=== PATIENT | female | born 2000 | race American Indian/Alaskan Native ===

== ENCOUNTER 2018-07-08 13:42 | Emergency (ER) | payer MEDICAID ==
[2018-07-08 15:07] LABS: BASO % 0.6 % (0.0-2.0); EOS # 0.3 K/uL (0.0-0.7); EOS % 3.9 % (0.0-4.0); HEMOGLOBIN 12.2 g/dL (12.0-16.0); LYMPH # 1.4 K/uL (1.0-4.3); LYMPH % 22.1 % (20.0-40.0); MEAN CELL VOLUME 88.8 fl (81.0-99.0); MEAN CORPUSCULAR HEMOGLOBIN 29.5 pg (27.0-31.0); MEAN CORPUSCULAR HGB CONC 33.2 g/dL (33.0-37.0); MEAN PLATELET VOLUME 8.7 fl (7.2-11.7); MONO # 0.4 K/uL (0.0-0.8); MONO % 6.9 % (0.0-10.0); NEUT # 4.3 K/uL (1.8-7.0); NEUT % 66.5 % (50.0-75.0); RBC 4.13 Mil/uL (3.80-5.20); RED CELL DISTRIBUTION WIDTH 18.7 % (11.5-14.5); WHITE BLOOD COUNT 6.4 K/uL (4.8-10.8)
[2018-07-08 15:19] LABS: SQUAMOUS EPITHIAL 12 /hpf (0-5); URINE BACTERIA OCC (<OCC); URINE BILIRUBIN NEGATIVE (NEGATIVE); URINE BLOOD NEGATIVE (NEGATIVE); URINE CLARITY CLOUDY (Clear); URINE COLOR YELLOW (YELLOW); URINE GLUCOSE (UA) NEG (Normal); URINE LEUKOCYTE ESTERASE NEG Leu/uL (Negative); URINE PROTEIN 30 mg/dL (NEGATIVE); URINE UROBILINOGEN 0.2-1.0 mg/dL (0.2-1.0)
[2018-07-08 15:23] LABS: ALB/GLOB RATIO 1.3 (1.0-2.1); ALBUMIN 4.3 g/dL (3.5-5.0); ALT/SGPT 18 U/L (9-52); AST/SGOT 28 U/L (14-36); BLOOD UREA NITROGEN 12 mg/dl (7-17); CALCIUM 9.2 mg/dL (8.4-10.2); GFR AFRICAN-AMERICAN > 60; GFR NON-AFRICAN AMERICAN > 60
--- NOTE | 2018-07-08 15:27 | ED PDOC ---
HPI: Abdomen Time Seen by Provider: 07/08/18 14:01 Chief Complaint (Nursing): Abdominal Pain Chief Complaint (Provider): Abdominal Pain History Per: Patient History/Exam Limitations: no limitations Onset/Duration Of Symptoms: Other (2 weeks) Quality Of Discomfort: "Pain" Associated Symptoms: denies: Fever, Vomiting, Diarrhea, Loss Of Appetite, Chest Pain, Constipation, Urinary Symptoms Exacerbating Factors: denies: None Alleviating Factors: denies: None Last Bowel Movement: Today Additional History Per: Patient Additional Complaint(s): 18 year old female with a past medical history of asthma presents to the ED for an evaluation of lower abdominal pain with associated symptom of mild nausea onset for 2 weeks. Patient states she is 2 weeks late for her period and her last normal menstrual cycle was in early May. Currently, she has lower abdominal pain that is not associated with her period. Also reports of wheezing this morning for which she took Albuterol for relief (pt states she does not need refill for albuterol). On Saturday, patient took a test that was negative and on Saturday she took 2 tests that showed positive results. Patient has vaginal spotting but denies STD, previous , mischarge, vaginal discharge or bleeding. She has not visited a imcu specialist. PMD: [place] Past Medical History Reviewed: Historical Data, Nursing Documentation, Vital Signs Vital Signs: Last Vital Signs Temp 97.6 F 07/08/18 17:05 Pulse 76 07/08/18 17:05 Resp 19 07/08/18 17:05 BP 124/78 07/08/18 17:05 Pulse Ox 99 07/08/18 18:35 - Medical History PMH: Asthma Denies: Chronic Kidney Disease - Family History Family History: States: Unknown Family Hx - Social History Current smoker - smoking cessation education provided: No Alcohol: None Drugs: Denies - Immunization History Hx Tetanus Toxoid Vaccination: Yes Hx Influenza Vaccination: No - Home Medications Home Medications: Ambulatory Orders Medication Instructions Recorded Amoxicillin/Clavulanate [Augmentin 1 tab PO BID #14 tab 06/13/16 875 MG-125 MG] Vit No.129/Iron/Folic 1 each PO DAILY #30 tablet 07/08/18 [ One Daily Tablet] - Allergies Allergies/Adverse Reactions: Allergies Allergy/AdvReac Type Severity Reaction Status Date / Time No Known Allergies Allergy Verified 07/08/18 13:45 Review of Systems ROS Statement: Except As Marked, All Systems Reviewed And Found Negative Gastrointestinal: Positive for: Nausea (mild), Abdominal Pain. Negative for: Vomiting Genitourinary Female: Positive for: Other (vaginal spotting). Negative for: Dysuria, Frequency, Incontinence, Vaginal Discharge, Vaginal Bleeding Physical Exam - Reviewed Nursing Documentation Reviewed: Yes Vital Signs Reviewed: Yes - Physical Exam Appears: Positive for: Well, Non-toxic, No Acute Distress Head Exam: Positive for: ATRAUMATIC, NORMAL INSPECTION, NORMOCEPHALIC Skin: Positive for: Normal Color, Warm, Dry Eye Exam: Positive for: EOMI, Normal appearance, PERRL ENT: Positive for: Normal ENT Inspection Neck: Positive for: Normal, Painless ROM, Supple. Negative for: Decreased ROM Cardiovascular/Chest: Positive for: Regular Rate, Rhythm. Negative for: Murmur Respiratory: Positive for: Normal Breath Sounds. Negative for: Decreased Breath Sounds, Wheezing, Respiratory Distress Gastrointestinal/Abdominal: Positive for: Normal Exam, Bowel Sounds, Soft. Negative for: Tenderness, Guarding, Rebound Back: Positive for: Normal Inspection. Negative for: L CVA Tenderness, R CVA Tenderness Extremity: Positive for: Normal ROM. Negative for: Tenderness, Pedal Edema, Deformity Neurologic/Psych: Positive for: Alert, Oriented (x3). Negative for: Motor/ Sensory Deficits - Laboratory Results Result Diagrams: 07/08/18 14:40 07/08/18 14:40 - ECG O2 Sat by Pulse Oximetry: 99 (RA) Pulse Ox Interpretation: Normal Medical Decision Making Medical Decision Making: Time: 1413 Initial Impression: Pt with lower abdominal pain and 2 weeks late on menstrual period. 2 positive home tests. Ultrasound to confirm IUP. Pt hemodynamically stable and low suspicion for ectopic . Initial Plan: --Type and Screen --Beta-HCG, Quantitative --CMP --Magnesium --Phosphorous --CBC w/ Differential --Urinalysis -- Age [US] --Reevaluation Time: 1610 PROCEDURE: OB Pelvic Ultrasound HISTORY: confirm IUP COMPARISON: None available. FINDINGS: UTERUS: Single Live intrauterine gestation. CRL measures 1.7 cm equivalent to 6 weeks and 0 day of gestational age. Gestational sac diameter measures 1.7 cm equivalent to 6 weeks and 0 day of gestational age with age (Ultrasound estimated): 6 weeks and 1 day Date of delivery (Ultrasound estimated) : 03/02/2019 Heart rate: 79 bpm. Eden-gestational hemorrhage: None. Uterus measures cm. No mass CERVIX: Long and closed. No cervical abnormality seen. RIGHT OVARY: Measures 2.8 x 1.7 x 2.6 cm. No mass. Normal flow. LEFT OVARY: Measures 1.8 x 1.3 x 1.2 cm. No mass. Normal flow. FREE FLUID: None. OTHER FINDINGS: None. IMPRESSION: Single live intrauterine gestation with mean gestational age of 6 weeks and 1 day. The estimated date of delivery by ultrasound is 03/02/2019. The ultrasound dates correspond with the clinical dates. The heart rate is 79, concerning for bradycardia. Clinical follow- up is advised. Patient advised to follow-up with imcu specialist. Clinical Impression: abdominal pain during Upon provider evaluation patient is medically stable, and requires no further treatment in the ED at this time. Patient will be discharged with One Daily. Counseling was provided and all questions were answered regarding diagnosis and need for follow up with women health clinic. There is agreement to discharge plan. Return if symptoms persist or worsen. Scribe Attestation: Documented by Tracie Haque, acting as a scribe for Fiona Lee MD Provider Scribe Attestation: All medical record entries made by the Scribe were at my direction and personally dictated by me. I have reviewed the chart and agree that the record accurately reflects my personal performance of the history, physical exam, medical decision making, and the department course for this patient. I have also personally directed, reviewed, and agree with the discharge instructions and disposition. Pt with normal labs, O+ blood, and confirmed IUP. Prenantal care (no smoking, drugs, appropriate diet etc) discussed with the patient. Pt given referral to [facility] and Rx for vitamins. Return parameters discussed with the patient. Disposition - Clinical Impression Clinical Impression: Abdominal pain during - Patient ED Disposition Is Patient to be Admitted: No - Disposition Referrals: [facility] [Outside] Disposition: Routine/Home Disposition Time: 17:00 Condition: GOOD Additional Instructions: Follow up with nurse staff community health for routine care. Prescriptions: Vit No.129/Iron/Folic [ One Daily Tablet] 1 each PO DAILY #30 tablet Instructions: Medications and , Alcohol and , Screenings, Nutrition Before and During , Morning Sickness (DC) Forms: [employer] (Sudanese)
--- NOTE | 2018-07-08 16:12 | US ---
Date of service: 07/08/2018 PROCEDURE: OB Pelvic Ultrasound HISTORY: confirm IUP COMPARISON: None available. FINDINGS: UTERUS: Single Live intrauterine gestation. CRL measures 1.7 cm equivalent to 6 weeks and 0 day of gestational age. Gestational sac diameter measures 1.7 cm equivalent to 6 weeks and 0 day of gestational age with age (Ultrasound estimated): 6 weeks and 1 day Date of delivery (Ultrasound estimated) : 03/02/2019 Heart rate: 79 bpm. [place]-gestational hemorrhage: None. Uterus measures cm. No mass CERVIX: Long and closed. No cervical abnormality seen. RIGHT OVARY: Measures 2.8 x 1.7 x 2.6 cm. No mass. Normal flow. LEFT OVARY: Measures 1.8 x 1.3 x 1.2 cm. No mass. Normal flow. FREE FLUID: None. OTHER FINDINGS: None. IMPRESSION: Single live intrauterine gestation with mean gestational age of 6 weeks and 1 day. The estimated date of delivery by ultrasound is 03/02/2019. The ultrasound dates correspond with the clinical dates. The heart rate is 79, concerning for bradycardia. Clinical follow-up is advised.
[2018-07-08 17:05] VITALS: BP 124/78; PULSE 76; RESP 19; TEMP 97.6
[2018-07-08 18:20] VITALS: O2SAT 99
== END 2018-07-08 17:06 | disposition home or self-care (01) ==
LOC: H.ER 13:42
DX: O26.91 Pregnancy related conditions, unspecified, first trimester (principal); R10.2 Pelvic and perineal pain; O99.511 Diseases of the respiratory system complicating pregnancy, first trimester; J45.909 Unspecified asthma, uncomplicated; Z3A.01 Less than 8 weeks gestation of pregnancy

== ENCOUNTER 2018-07-31 12:13 | Emergency (ER) | payer MEDICAID ==
[2018-07-31 12:51] VITALS: O2SAT 100
[2018-07-31 13:37] LABS: INR 1.1; PROTHROMBIN TIME 12.3 Seconds (9.8-13.1)
[2018-07-31 13:43] LABS: BASO % 0.9 % (0.0-2.0); EOS # 0.2 K/uL (0.0-0.7); EOS % 6.9 % (0.0-4.0); HEMOGLOBIN 11.8 g/dL (12.0-16.0); LYMPH # 1.4 K/uL (1.0-4.3); LYMPH % 38.9 % (20.0-40.0); MEAN CELL VOLUME 88.2 fl (81.0-99.0); MEAN CORPUSCULAR HEMOGLOBIN 29.6 pg (27.0-31.0); MEAN CORPUSCULAR HGB CONC 33.6 g/dL (33.0-37.0); MEAN PLATELET VOLUME 8.3 fl (7.2-11.7); MONO # 0.3 K/uL (0.0-0.8); MONO % 8.9 % (0.0-10.0); NEUT # 1.6 K/uL (1.8-7.0); NEUT % 44.4 % (50.0-75.0); NRBC % 0.1 % (0.0-0.0); RBC 3.97 Mil/uL (3.80-5.20); RED CELL DISTRIBUTION WIDTH 17.7 % (11.5-14.5); WHITE BLOOD COUNT 3.5 K/uL (4.8-10.8)
[2018-07-31 13:45] LABS: ALB/GLOB RATIO 1.3 (1.0-2.1); ALT/SGPT 21 U/L (9-52); AST/SGOT 23 U/L (14-36); BLOOD UREA NITROGEN 13 mg/dl (7-17); CALCIUM 9.1 mg/dL (8.4-10.2); GFR NON-AFRICAN AMERICAN > 60
--- NOTE | 2018-07-31 14:18 | ED PDOC ---
HPI: Female Pain Time Seen by Provider: 07/31/18 13:03 Chief Complaint (Nursing): Female Genitourinary Chief Complaint (Provider): Vaginal bleeding History Per: Patient History/Exam Limitations: no limitations Onset/Duration Of Symptoms: Persistent Current Symptoms Are (Timing): Still Present Associated Symptoms: denies: Fever, Chills, Nausea, Vomiting, Diarrhea, Back Pain, Chest Pain Additional History Per: Patient Additional Complaint(s): 18yo female, comes to ER with complaints of persistent vaginal bleeding. Patient states mid-june she found out that she was and on 07/10 she took Cytotec 800mg for an elective ; patient states she took a 600mg pill 3 hours later and then took 200mg of cytotec 1x per day for 1 week. Patient reports she is concerned due to the persistent bleeding and reports she has been using several pads per day. Otherwise, denies any cramping, dizziness, weakness. No other complaints. Abnormal Vaginal Bleeding: Yes Past Medical History Reviewed: Historical Data, Nursing Documentation, Vital Signs Vital Signs: Last Vital Signs Temp 98.2 F 07/31/18 12:49 Pulse 80 07/31/18 12:49 Resp 18 07/31/18 12:49 BP 116/71 07/31/18 12:49 Pulse Ox 100 07/31/18 12:49 - Medical History PMH: Asthma Denies: Chronic Kidney Disease - Surgical History Surgical History: No Surg Hx - Family History Family History: States: No Known Family Hx - Social History Current smoker - smoking cessation education provided: No Alcohol: None Drugs: Denies - Immunization History Hx Tetanus Toxoid Vaccination: Yes Hx Influenza Vaccination: No - Home Medications Home Medications: Ambulatory Orders Medication Instructions Recorded Amoxicillin/Clavulanate [Augmentin 1 tab PO BID #14 tab 06/13/16 875 MG-125 MG] Vit No.129/Iron/Folic 1 each PO DAILY #30 tablet 07/08/18 [ One Daily Tablet] Naproxen [Naprosyn] 500 mg PO BID PRN #14 tablet 07/31/18 traMADol [Ultram] 50 mg PO TID PRN #8 tab 07/31/18 - Allergies Allergies/Adverse Reactions: Allergies Allergy/AdvReac Type Severity Reaction Status Date / Time No Known Allergies Allergy Verified 07/31/18 12:48 Review of Systems ROS Statement: Except As Marked, All Systems Reviewed And Found Negative Genitourinary Female: Positive for: Vaginal Bleeding Neurological: Negative for: Dizziness Physical Exam - Reviewed Nursing Documentation Reviewed: Yes Vital Signs Reviewed: Yes - Physical Exam Appears: Positive for: Non-toxic, No Acute Distress Head Exam: Positive for: ATRAUMATIC, NORMAL INSPECTION, NORMOCEPHALIC Skin: Positive for: Normal Color Eye Exam: Positive for: Normal appearance Neck: Positive for: Normal, Supple Cardiovascular/Chest: Positive for: Regular Rate, Rhythm Respiratory: Positive for: Normal Breath Sounds Gastrointestinal/Abdominal: Positive for: Normal Exam, Soft. Negative for: Tenderness, Rebound Pelvic Exam: Positive for: External Exam Normal, Blood (MILD). Negative for: Discharge, Lesions, Tender W/Cervical Motion Back: Positive for: Normal Inspection Extremity: Positive for: Normal ROM Neurologic/Psych: Positive for: Alert, Oriented - Laboratory Results Result Diagrams: 07/31/18 13:25 07/31/18 13:25 Urine POC: Positive Urine dip results: Positive for: Blood - ECG O2 Sat by Pulse Oximetry: 100 (RA) Pulse Ox Interpretation: Normal Medical Decision Making Medical Decision Making: Urine positive. Patient noted to have blood in urine. Beta-HCG ordered. US ordered to r/o RPOC. 1438 US OB/Transvaginal Findings: Uterus measures approximately 7.4 x 6.5 x 4.2 cm. Anteverted. Cervix length measures approximately 3.4 cm Endometrium measures approximately 1 cm in diameter. Endometrium appears heterogeneous and there is evidence of debris. No significant vascularity appreciated on limited submitted views. Moderate pelvic free fluid. The right ovary measures 2.9 x 2.7 x 1.9 cm. The left ovary measures 2.9 x 2.3 x 1.3 cm. Blood flow was demonstrated to both ovaries. Impression: Heterogeneous appearance of the endometrium with evidence of debris. No significant vascularity appreciated on limited submitted views. Findings may reflect retained products of conception. Correlate clinically. Moderate pelvic free fluid. LABS REVIEWED d/w Dr Cunningham rec additional dose cytotec and followup w her OB/PMD Scribe Attestation: Documented by Rowena Connor, acting as a scribe for Robinson Faustin III, DO Provider Scribe Attestation: All medical record entries made by the Scribe were at my direction and personally dictated by me. I have reviewed the chart and agree that the record accurately reflects my personal performance of the history, physical exam, medical decision making, and the department course for this patient. I have also personally directed, reviewed, and agree with the discharge instructions and disposition. Disposition - Clinical Impression Clinical Impression: Retained products of conception - Patient ED Disposition Is Patient to be Admitted: No Counseled Patient/Family Regarding: Studies Performed, Diagnosis, Need For Followup, Rx Given - Disposition Disposition: Routine/Home Disposition Time: 15:34 Condition: STABLE Additional Instructions: Followup with your OB doctor for continued care Return to ER for any worse or new symptoms, weakness, pain, fever or any concern /. Expect more cramping and bleeding today, take naprosyn every 12hrs as needed and tramadol every 4hrs as needed. MARK SAMS, thank you for letting us take care of you today. Your provider was Robinson Faustin III, DO and you were treated for VAGINAL BLEEDING/ABD PAIN. The emergency medical care you received today was directed at your acute symptoms. If you were prescribed any medication, please fill it and take as directed. It may take several days for your symptoms to resolve. Return to the Emergency Department if your symptoms worsen, do not improve, or if you have any other problems. Please contact your doctor or call one of the physicians/clinics you have been referred to that are listed on the Patient Visit Information form that is included in your discharge packet. Bring any paperwork you were given at discharge with you along with any medications you are taking to your follow up visit. Our treatment cannot replace ongoing medical care by a primary care provider outside of the emergency department. Thank you for allowing the [facility] team to be part of your care today. If you had an X-Ray or CT scan: A Radiologist will review the ED reading if any change in treatment is needed we will contact you. If you had a blood, urine, or wound culture: It will take several days for the results, if any change in treatment is needed we will contact you. If you had an STI test: It will take 48 hours for the results. Please call after 1 week if you have not heard back. Prescriptions: Naproxen [Naprosyn] 500 mg PO BID PRN #14 tablet PRN Reason: Pain, Moderate (4-7) traMADol [Ultram] 50 mg PO TID PRN #8 tab PRN Reason: Pain, Moderate (4-7) Instructions: Miscarriage, Dealing With Miscarriage Forms: [employer] (Portuguese)
--- NOTE | 2018-07-31 14:39 | US ---
Indication: Rule out retained products Comparison: Ob transvaginal ultrasound performed 07/08/18 Technique: Ob transvaginal ultrasound Findings: Uterus measures approximately 7.4 x 6.5 x 4.2 cm. Anteverted. Cervix length measures approximately 3.4 cm Endometrium measures approximately 1 cm in diameter. Endometrium appears heterogeneous and there is evidence of debris. No significant vascularity appreciated on limited submitted views. Moderate pelvic free fluid. The right ovary measures 2.9 x 2.7 x 1.9 cm. The left ovary measures 2.9 x 2.3 x 1.3 cm. Blood flow was demonstrated to both ovaries. Impression: Heterogeneous appearance of the endometrium with evidence of debris. No significant vascularity appreciated on limited submitted views. Findings may reflect retained products of conception. Correlate clinically. Moderate pelvic free fluid.
[2018-07-31 14:40] LABS: SQUAMOUS EPITHIAL 3 /hpf (0-5); URINE BILIRUBIN NEGATIVE (NEGATIVE); URINE BLOOD LARGE (NEGATIVE); URINE CLARITY SLIGHTY-CLOUDY (Clear); URINE COLOR YELLOW (YELLOW); URINE GLUCOSE (UA) NEG (Normal); URINE LEUKOCYTE ESTERASE NEG Leu/uL (Negative); URINE PROTEIN 30 mg/dL (NEGATIVE); URINE UROBILINOGEN 0.2-1.0 mg/dL (0.2-1.0)
[2018-07-31 16:22] VITALS: BP 115/74; PULSE 75; RESP 16; TEMP 97.9
== END 2018-07-31 16:22 | disposition home or self-care (01) ==
LOC: H.ER 12:13
DX: O73.1 Retained portions of placenta and membranes, without hemorrhage (principal)

== ENCOUNTER 2018-09-18 13:00 | Emergency (ER) | payer MEDICAID ==
[2018-09-18 13:05] VITALS: BP 134/81; PULSE 106; RESP 16; TEMP 97; O2SAT 98
--- NOTE | 2018-09-18 14:16 | ED PDOC ---
HPI: General Adult Time Seen by Provider: 09/18/18 13:02 Chief Complaint (Nursing): Abdominal Pain Chief Complaint (Provider): Vaginal bleeding History Per: Patient History/Exam Limitations: no limitations Onset/Duration Of Symptoms: Days (2) Additional Complaint(s): 18 yo female with history of asthma presents for evaluation of vaginal bleeding. PT states that she has elective in middle of june. Pt was seen in the beginning of July for continued bleeding after . Pt states she stopped bleeding shortly after and had a normal menses which began on 08/21/18. Pt states she began spotting yesterday and is concerned she might be again because she has been having unprotected sex. Pt did not take a test at home. Past Medical History Reviewed: Historical Data, Nursing Documentation, Vital Signs Vital Signs: Last Vital Signs Temp 97.0 F L 09/18/18 13:03 Pulse 106 H 09/18/18 13:03 Resp 16 09/18/18 13:03 BP 134/81 09/18/18 13:03 Pulse Ox 98 09/18/18 13:03 - Medical History PMH: Asthma Denies: Chronic Kidney Disease - Surgical History Surgical History: No Surg Hx - Family History Family History: States: Unknown Family Hx - Immunization History Hx Tetanus Toxoid Vaccination: Yes Hx Influenza Vaccination: No - Home Medications Home Medications: Ambulatory Orders Medication Instructions Recorded Amoxicillin/Clavulanate [Augmentin 1 tab PO BID #14 tab 06/13/16 875 MG-125 MG] Vit No.129/Iron/Folic 1 each PO DAILY #30 tablet 07/08/18 [ One Daily Tablet] Naproxen [Naprosyn] 500 mg PO BID PRN #14 tablet 07/31/18 traMADol [Ultram] 50 mg PO TID PRN #8 tab 07/31/18 - Allergies Allergies/Adverse Reactions: Allergies Allergy/AdvReac Type Severity Reaction Status Date / Time No Known Allergies Allergy Verified 09/18/18 13:03 Review of Systems ROS Statement: Except As Marked, All Systems Reviewed And Found Negative Constitutional: Negative for: Fever, Chills Cardiovascular: Negative for: Palpitations Respiratory: Negative for: Cough, Shortness of Breath Gastrointestinal: Negative for: Nausea, Vomiting, Abdominal Pain, Diarrhea Genitourinary Female: Positive for: Vaginal Bleeding. Negative for: Vaginal Discharge, Pelvic Pain Physical Exam - Reviewed Nursing Documentation Reviewed: Yes Vital Signs Reviewed: Yes - Physical Exam Appears: Positive for: Well, Non-toxic, No Acute Distress Head Exam: Positive for: ATRAUMATIC, NORMAL INSPECTION, NORMOCEPHALIC Skin: Positive for: Normal Color, Warm, DRY Eye Exam: Positive for: Normal appearance ENT: Positive for: Normal ENT Inspection Neck: Positive for: Normal, Painless ROM Cardiovascular/Chest: Positive for: Regular Rate, Rhythm Respiratory: Positive for: CNT, Normal Breath Sounds Gastrointestinal/Abdominal: Positive for: Normal Exam, Soft. Negative for: Tenderness Back: Positive for: Normal Inspection Extremity: Positive for: Normal ROM Neurologic/Psych: Positive for: Alert, Oriented - ECG O2 Sat by Pulse Oximetry: 98 Medical Decision Making Medical Decision Making: test in ER negative. Discussed f/u with OB.[employer]. Discussed repeat in 1 week if her normal menses does not return. Disposition - Clinical Impression Clinical Impression: Abnormal menses - Patient ED Disposition Is Patient to be Admitted: No Counseled Patient/Family Regarding: Diagnosis, Need For Followup - Disposition [facility]errals[facility] [[facility]] Disposition: Routine/Home Disposition Time: 14:14 Condition: GOOD Instructions: Absent or Irregular Periods
== END 2018-09-18 14:45 | disposition home or self-care (01) ==
LOC: H.ER 13:00
DX: N92.6 Irregular menstruation, unspecified (principal)